=== PATIENT | female | born 1985 ===

== ENCOUNTER 2017-05-13 16:31 | Outpatient (CLI) | payer OTHER | END 2017-05-13 16:38 | disposition home or self-care (01) | LOC: LAB 16:31 | DX: J11.1 Influenza due to unidentified influenza virus with other respiratory manifestations (principal) ==

== ENCOUNTER → 2017-05-13 | Outpatient (CLI) | payer OTHER | END | disposition home or self-care (01) | LOC: PPHC 15:28 | DX: J11.1 Influenza due to unidentified influenza virus with other respiratory manifestations (principal) ==

== ENCOUNTER → 2017-05-16 | Outpatient (CLI) | payer OTHER ==
[~2017-05-16] VITALS: Ht 152.4 cm; Wt 56.7 kg
== END | disposition home or self-care (01) ==
LOC: PPHC 17:53
DX: J06.9 Acute upper respiratory infection, unspecified (principal); J11.1 Influenza due to unidentified influenza virus with other respiratory manifestations; Z01.89 Encounter for other specified special examinations

== ENCOUNTER → 2017-05-17 | Outpatient (CLI) | payer OTHER | END | disposition home or self-care (01) | LOC: PPHC 14:13 | DX: Z02.89 Encounter for other administrative examinations (principal) ==